=== PATIENT | female | born 1990 | race Two or more races ===

== ENCOUNTER 2022-10-26 12:59 | Emergency (ER) | payer MEDICAID, OTHER ==
[~2022-10-26] VITALS: Ht 162.6 cm; Wt 79.4 kg
--- NOTE | 2022-10-26 13:19 | NUR ---
[id number] OFFICERS C/O L RING FINGER SWELLING. FAM REQUESTS PSYCH EVAL NOTED W BLOOD SHOT EYES, UNCOOPERATIVE WHEN BEING ASKED.
--- NOTE | 2022-10-26 13:20 | NUR ---
PT TRANSPORTED TO BED FROM [facility]. AMBULATED WITH STEADY GAIT. PT REFUSED TO GET THE RINGS ON LEFT RING FINGER CUT IN ORDER TO RELEIVE SWELLING. MADE AWARE.
[2022-10-26 13:58] LABS: BASOPHILS % (AUTO) 0.4 % (0.0-2.0); EOSINOPHILS % (AUTO) 0.2 % (0.0-6.0); HEMATOCRIT 35 % (33-45); HEMOGLOBIN 11.5 g/dL (11.5-14.8); LYMPHOCYTES # (AUTO) 1.2 K/uL (0.8-4.8); LYMPHOCYTES % (AUTO) 11.3 % (20.0-44.0); MEAN CORPUSCULAR HGB CONC 33 g/dl (31.0-36.0); MEAN CORPUSCULAR VOLUME 92 fL (82-100); MONOCYTES # (AUTO) 0.9 K/uL (0.1-1.30); MONOCYTES % (AUTO) 8.4 % (2.0-12.0); NEUTROPHILS # (AUTO) 8.4 K/uL (1.8-8.9); NEUTROPHILS % (AUTO) 79.7 % (43.0-81.0); PLATELET COUNT (AUTO) 337 K/uL (150-450); RED BLOOD CELL COUNT(AUTO) 3.84 MIL/uL (4.0-5.2); WHITE BLOOD COUNT (AUTO) 10.6 K/uL (4.3-11.0)
[2022-10-26 14:09] LABS: CALCIUM, SERUM 8.4 mg/dL (8.5-10.1); CARBON DIOXIDE 26 mmol/L (21-32); CHLORIDE 105 mmol/L (98-107); CREATININE 0.6 mg/dL (0.6-1.3); GLUCOSE 100 mg/dL (74-106); POTASSIUM 3.7 mmol/L (3.5-5.1); SODIUM SERUM 137 mmol/L (136-145); UREA NITROGEN, BLOOD 15 mg/dL (7-18)
[2022-10-26 14:18] LABS: ALANINE AMINOTRANSFERASE 46 U/L (12-78); ALBUMIN 3.2 g/dL (3.4-5.0); ALKALINE PHOSPHATASE 74 U/L (46-116); ASPARTATE AMINOTRANSFERASE 41 U/L (15-37); BILIRUBIN,DIRECT 0.1 mg/dL (0.0-0.2); BILIRUBIN,TOTAL 0.2 mg/dL (0.2-1.0); TOTAL PROTEIN, SERUM 6.7 g/dL (6.4-8.2)
[2022-10-26 14:28] LABS: ACETAMINOPHEN 0 ug/ml (10-30); ALCOHOL, BLOOD < 3 mg/dL (0-0)
--- NOTE | 2022-10-26 15:00 | NUR ---
PATIENT PLACED ON 72 HOUR FDC BY [employer] OFFICER [facility]RAVELY DISAB[facility]
--- NOTE | 2022-10-26 15:16 | NUR ---
FAMILY: SEVERO [phone]
[2022-10-26] MEDS ORDERED: LORAZEPAM INJ 2 MG/ML VIAL IV ONE (15:30)
[2022-10-26] MEDS ORDERED: OLANZAPINE 10 MG VIAL IM ONE ×2 (15:30→15:34)
[2022-10-26] MEDS ORDERED: LORAZEPAM INJ 2 MG/ML VIAL ONE ×2 (15:33→15:50)
[2022-10-26] MEDS ORDERED: LORAZEPAM INJ 2 MG/ML VIAL IM ONE (16:00)
--- NOTE | 2022-10-26 18:22 | NUR ---
COVID SWAB COLLECTED AND SENT TO LAB
--- NOTE | 2022-10-26 19:11 | NUR ---
PEGGY AT BEDSIDE.
[2022-10-26 19:43] LABS: BILIRUBIN,URINE NEGATIVE (NEGATIVE); COLOR,URINE YELLOW (YELLOW); LEUKOCYTE ESTERASE ,URINE NEGATIVE (NEGATIVE); NITRITE, URINE NEGATIVE (NEGATIVE); PH,URINE 5.5 (5.0-8.0); PROTEIN,URINE TRACE mg/dl (NEGATIVE); UGLUCOSE NEGATIVE (NEGATIVE); UROBILINOGEN,URINE 0.2 EU/dL (0.2)
[2022-10-26 19:53] LABS: BACTERIA,URINE 1+ /HPF (None Seen); COARSE GRANULAR CASTS,URINE Few /LPF (None Seen); RBC,URINE 0-2 /HPF (0-2); SQUAMOUS EPITHELIAL CELL,UR Few /HPF (None Seen); WBC,URINE 0-2 /HPF (0-3)
--- NOTE | 2022-10-27 17:55 | NUR ---
DR. IZAGUIRRE CALLED WILL SEE PT TOMORROW.
[2022-10-27] MEDS ORDERED: OLANZAPINE 10 MG VIAL IM ONE ×2 (18:29→18:30)
--- NOTE | 2022-10-28 04:30 | NUR ---
ADLS DONE. PT AMBULATORY WITH STEADY GAIT TO RESTROOM WITH SUPERVISION.
--- NOTE | 2022-10-28 05:24 | NUR ---
CM FROM [facility] FROM [place] STATED IS ON LIST. AWAITING CALL BACK.
--- NOTE | 2022-10-28 13:25 | NUR ---
AB planning: SW was notified pt.'s 5150 hold was cleared by psychiatrist, Dr. Montes and pt. may want to go to [facility] for possible voluntary psychiatric treatment. IMANI met with the pt. at bedside. The pt. is a 32 year old female pt. The pt. is awake, alert & oriented x 4 and makes good eye contact. The pt. states she feels somewhat anxious.The pt. denies SI/HI and denies hallucinations. Pt. appears disheveled and states she is not experiencing homelessness and that she lives at home [[address] [facility] [address]]with her parents, Fede and Sarah Hernandez TEL: [phone]. The pt. states she uses Meth amphetamine and Cannabinoids "every once in a while". Pt. denies that this is a problem for her. SW used motivational interviewing and provided psychoeducation on drug dependence. SW offered pt. rehab referral and pt. refused to go to rehab, however, pt. accepted addiction resources offered to her. Pt. states she has no Hx. of mental illness, however, pt. states she has been prescribed medication for her mental health in the past. The pt. states she is ambulatory and independent with all her ADL's. Pt. stated she wants to return home once ready for discharge. IMANI provided pt. with TAP card and bus directions to her home[[address] [facility] [address]]. SW also provided addiction resources and pt. accepted them. IMANI discussed with Tierney ANTONIO. ADDICTION RESOURCES For Drugs and Alcohol [facility] sober living Referrals For Rehabilitation once sober Address:[address] [place] [address] [facility] Rehabilitation Program [address] [place] [address] Detox/residential [facility] Substance Abuse Helpline ([facility]) Outpatient, residential treatment, recovery support for youth/adults [facility] www.Solais LightingfaMobius MicrosystemslycounsOHK Labs.scenios [facility] Teen programs for drug/alcohol education and support Zenia Reilly [place]. Program for adults, sliding scale provides support and education [employer] www.PinkelStar.org [place]; Detox/residential treatment programs; transition to sober living [facility] www.cri-help.org [place]; Outpatient and residential treatment programs; transition to sober living [facility] TEL: [phone] [facility] Everardo Amin; Outpatient education and supportive programs for teens and adults [facility] www.oasiswomensrecovery.org [place]; Residential treatment and work program for females only [place] www.Vird[employer] Software.Fitsistant [place]: Outpatient/residential treatment program for teens and young adults [facility] www.[facility].org [facility] Detox, inpatient, outpatient for adults and youth [facility], [facility]. [place]; Outpatient programs and referrals to community residential programs. Alcoholics Anonymous -SFV information and meeting and scheduleswww.aa-intergroup.org [place] https://al-anon.org/ [place] support groups for family of alcoholics. Marijuana Anonymous www.madistrict6.org -SFV listing of meetings Narcotics Anonymous www.na.org SOBER LIVING RESOURCES [facility] www.soberhousing.net A non-profit agency that provides resources to recovery and sober living homes throughout [facility] Men's Sober Living Homes: A Work in ProgressJavi [facility] Sapna Reilly [facility], [place] [facility] Women's Sober Living Homes: [facility] [phone] [place], [place] [facility] [place] [facility] Coed Sober Living Homes: [facility]--Outpatient [facility] [address] [facility] [place] [address] (Specializes in in-depth psychotherapy for emotional distress: anxiety, depression, interpersonal conflicts, life transitions, childhood abuse) [facility] [address] [place] [address] (Assist with solving problem marital difficulties, separation & divorce, aging parents, & grief, chronic & terminal illness) [facility] [address] [place] [address] (Deal with loss & grief, anxiety, marital difficulties) Homebound/Mental Health Services [address], [address] [place] [address] (Provide in-home mental services to people who are incapable of leaving their homes) [facility] of the Elderly Senior Service/Resource Center [address] [place] [address] [facility] [address] [place] [address] Mental Health Services Zayra Marin [address] [place] [address] Services: Outpatient therapy for children, teens, young adults, adults, older adults, and families; Psychiatric services, medication support Psychiatric Outpatient Services [facility] Partial Hospitalization and Intensive Outpatient Program (Managed Care and [place] Only)[address]. [facility] [phone] [facility] Partial Hospitalization and Outpatient [id number] Taj [facility]. [address] [place], [place] [phone] [facility] Ide[address]. [address] [place], [place] [phone] [facility] Everardo Amin Partial Hospitalization and Outpatient Xregxyf51215 Pauline Olivarez, [phone] Crisis and Hotline Telephone Numbers 24-Hour service unless stated [place] Crisis Hotlines: [facility] Mental Health/Crisis Line........632.597.1500 Suicide Prevention Center (24 Hours).......113.596.4496 Suicide Prevention Crisis Center.......238.203.1087 (24 Hours) Assaults Against Women Hotline.........781.784.1342 (24 Hours -- [facility]) Women and Children Crisis Prison...........[phone] (24 Hours) Child Abuse Hotline............364.428.3401 [facility] (24 Hours)..........[phone] Alcoholics Anonymous (24 Hours)..........[phone] Cocaine Anonymous (24 Hours)............688.554.3391 Narcotics Anonymous (24 Hours)..........[phone] Jenn Ramon [facility] [address], [place] [address]
[2022-10-28 15:25] VITALS: BP 121/81
--- NOTE | 2022-10-28 15:25 | NUR ---
Patient discharged to home in stable condition. Written and verbal after care instructions given. Patient verbalizes understanding of instruction.
== END 2022-10-28 15:26 | disposition home or self-care (01) ==
LOC: ER 15:04
DX: R46.2 Strange and inexplicable behavior (principal); S60.445A External constriction of left ring finger, initial encounter; W49.04XA Ring or other jewelry causing external constriction, initial encounter; Y92.89 Other specified places as the place of occurrence of the external cause; F20.9 Schizophrenia, unspecified; F15.20 Other stimulant dependence, uncomplicated; Z20.822 Contact with and (suspected) exposure to COVID-19
CPT/HCPCS: 99285; 96372 ×2; 96374; 85025; 80048; 80076; 81001; 36415; 87426; 80143; 80320; 80307; J2060 ×2; J3490; C9803; G0480